=== PATIENT | male | born 1995 | race Caucasian/White ===

== ENCOUNTER → 2018-03-29 | Outpatient (CLI) | payer OTHER ==
[~2018-03-29] MED LIST: ANAPROX DS550 MG PO; AUGMENTIN ES-6050 ML PO; CYCLOBENZAPRINE5 M3 PO; HYDROCODONE BIT1 T11 PO; IBU800 M1 PO; IBUPROFEN400 MG PO; KEFLEX500 MG PO; MULTIPLE VITAMI1 CTB PO; VYVANSE50 MG PO; VYVANSE70 MG PO; ZITHROMAX250 MG PO; ZOFRAN ODT4 MG SL
[2018-03-29 14:12] LABS: CHLORIDE 106 mmol/L (98-107); CPK 70 U/L (39-308); CREATININE 0.97 mg/dL (0.70-1.30); POTASSIUM 3.8 mmol/L (3.5-5.1); SODIUM 141 mmol/L (136-145)
[2018-03-31 16:06] LABS: CREATININE, RANDOM URINE 183.1 mg/dL (Not Estab.)
[2018-03-31 18:02] LABS: METANEPH-CREAT RATIO 0.3 (0.0-1.0)
== END | disposition home or self-care (01) ==
LOC: LAB 13:18
PROVIDERS: Pediatrics
DX: Z00.01 Encounter for general adult medical examination with abnormal findings (principal)

== ENCOUNTER 2018-11-26 23:08 | Emergency (ER) | payer OTHER ==
[~2018-11-26] VITALS: Ht 175.2 cm; Wt 63.5 kg
[2018-11-26 23:11] VITALS: BP 133/81
[2018-11-27 00:16] LABS: BILIRUBIN NEGATIVE (NEGATIVE); BLOOD NEGATIVE (NEGATIVE); CLARITY SL CLOUDY (CLEAR); COLOR YELLOW (YELLOW); GLUCOSE NEGATIVE (NEGATIVE); KETONE NEGATIVE (NEGATIVE); LEUKO ESTERASE NEGATIVE (NEGATIVE); NITRITE NEGATIVE (NEGATIVE); PH 7.5 (5.0-9.0); SPECIFIC GRAVITY 1.015 (1.005-1.030); UROBILINOGEN 0.2 E.U./dl (0.2-1.0)
[2018-11-27 00:24] LABS: BACTERIA 1+
[2018-11-27] MEDS ORDERED: LEVOFLOXACIN500 MG PO (01:57)
== END 2018-11-27 02:25 | disposition home or self-care (01) ==
LOC: ED 23:08
PROVIDERS: Nurse Practitioner Family
DX: N45.1 Epididymitis (principal)

== ENCOUNTER 2019-09-27 18:30 | Emergency (ER) | payer SELFPAY ==
[~2019-09-27] VITALS: Ht 180.3 cm; Wt 63.5 kg
[~2019-09-27 18:30] MED LIST changes: +LEVOFLOXACIN500 MG PO
[2019-09-27 18:41] VITALS: BP 132/76
== END 2019-09-27 19:50 | disposition home or self-care (01) ==
LOC: ED 18:30
DX: S61.211A Laceration without foreign body of left index finger without damage to nail, initial encounter (principal); F17.200 Nicotine dependence, unspecified, uncomplicated; Z79.2 Long term (current) use of antibiotics; W26.0XXA Contact with knife, initial encounter; Y93.89 Activity, other specified; Y92.89 Other specified places as the place of occurrence of the external cause; Y99.8 Other external cause status

== ENCOUNTER 2021-03-19 22:59 | Emergency (ER) | payer OTHER ==
[~2021-03-19] VITALS: Ht 177.8 cm; Wt 56.2 kg
[2021-03-19 23:21] VITALS: BP 129/97
[2021-03-19] MEDS ORDERED: ADDERALL XR 3030 MG PO (23:22)
== END 2021-03-20 00:44 | disposition left against medical advice (07) ==
LOC: ED 22:59
DX: M79.641 Pain in right hand (principal); Z53.21 Procedure and treatment not carried out due to patient leaving prior to being seen by health care provider; W22.01XA Walked into wall, initial encounter; Y93.89 Activity, other specified; Y92.89 Other specified places as the place of occurrence of the external cause; Y99.8 Other external cause status

== ENCOUNTER 2021-03-22 08:25 | Emergency (ER) | payer OTHER ==
[~2021-03-22] VITALS: Ht 177.8 cm; Wt 61.2 kg
[~2021-03-22 08:25] MED LIST changes: +ADDERALL XR 3030 MG PO
[2021-03-22 09:02] VITALS: BP 136/92
== END 2021-03-22 21:30 | disposition left against medical advice (07) ==
LOC: ED 08:25
DX: M79.89 Other specified soft tissue disorders (principal); Z53.21 Procedure and treatment not carried out due to patient leaving prior to being seen by health care provider

== ENCOUNTER → 2025-01-09 | Outpatient (CLI) | payer OTHER ==
[2025-01-09 17:35] LABS: BASO # 0.0 10*3/uL (0.0-0.1); BASO % 0.1 % (0.0-1.0); EOS # 0.1 10*3/uL (0.0-0.4); EOS % 1.0 % (1.0-4.0); MEAN CELL VOLUME 86.3 fl (80.0-94.0); MEAN CORPUSCULAR HGB 29.6 pg (27.0-31.0); MEAN PLATELET VOLUME 9.4 fl (9.6-12.3); MONO # 0.4 10*3/uL (0.1-1.0); MONO % 6.5 % (3.0-9.0); NEUT # 3.9 10*3/uL (2.3-7.9); NEUT % 58.1 % (47.0-73.0); NUCLEATED RED BLOOD CELL 0.0 % (0.0-0.0); NUCLEATED RED BLOOD CELL 0.0 10*3/uL (0.0-0.0); PLATELET COUNT AUTOMATED 271 10*3/uL (130-400); RED CELL DISTRI WIDTH 12.7 % (0-14.5)
[2025-01-09 18:20] LABS: BUN 14 mg/dl (9-23); FREE T4 1.15 ng/dl (0.89-1.76); SGPT/ALT 19 U/L (5-49)
== END | disposition home or self-care (01) ==
LOC: LAB 17:19
PROVIDERS: ATTEND Internal Medicine
DX: F90.1 Attention-deficit hyperactivity disorder, predominantly hyperactive type (principal)